=== PATIENT | male | born 2000 | race Caucasian/White ===

== ENCOUNTER 2022-12-05 18:26 | Emergency (ER) | payer OTHER ==
[2022-12-05] MEDS ORDERED: FLUORESCEIN NA 1 EA STRIP ONE (18:41)
[2022-12-05 18:43] VITALS: BP 120/64; PULSE 61; RESP 16; TEMP 98.8; BMI 27.8
[2022-12-05] MEDS ORDERED: DIPHTH,PERTUSS(ACELL),TET 0.5 ML DISP.SYRIN IM ONE ×2 (19:01→19:04)
== END 2022-12-05 19:19 | disposition home or self-care (01) ==
LOC: FER 18:26
PROC: 3E0234Z Introduction of Serum, Toxoid and Vaccine into Muscle, Percutaneous Approach (ICD-10-PCS; principal; 2022-12-05)
DX: S05.91XA Unspecified injury of right eye and orbit, initial encounter (principal); S05.92XA Unspecified injury of left eye and orbit, initial encounter; X58.XXXA Exposure to other specified factors, initial encounter
CPT/HCPCS: 90715; 99282-25